=== PATIENT | male | born 1975 | race Caucasian/White ===

== ENCOUNTER 2023-11-10 15:56 | Emergency (ER) | payer SELFPAY ==
[2023-11-10 16:08] VITALS: BP 138/98
[2023-11-10 16:45] LABS: % Basophils 0.4 % (0-2); % Eosinophils 0.5 % (0-6); % Immature Granulocytes 0.5 % (0-0.5); % Neutrophils 78.6 % (42.2-75.2); ALT (SGPT) 34 U/L (0-50); AST (SGOT) 29 U/L (17-59); Absolute Eosinophils 0.1 10^3/uL (0-0.7); Absolute Immature Granulocytes 0.1 10^3/uL (0-0.05); Absolute Lymphocytes 1.3 10^3/uL (1.2-3.4); Absolute Monocytes 0.7 10^3/uL (0.1-0.6); Absolute Neutrophils 7.6 10^3/uL (1.4-6.5); Albumin 4.9 g/dl (3.5-5.0); Alkaline Phosphatase 80 U/L (38-126); Blood Urea Nitrogen 17 mg/dl (9-20); Calcium 9.9 mg/dl (8.4-10.2); Carbon Dioxide 29 mmol/L (22-30); Chloride 102 mmol/L (98-107); Glucose 82 mg/dl (70-99); Hematocrit 38.6 % (39.0-52.0); Hemoglobin 13.9 g/dL (13.0-18.0); Mean Corpuscular Hgb 28.4 pg (27.0-31.0); Mean Corpuscular Volume 78.8 fL (80.0-94.0); Mean Platelet Volume 9.9 fL (7.4-10.4); Nucleated Red Blood Cells % 0 % (-); Platelet Count 223 10^3/uL (130-400); Potassium 4.5 mmol/L (3.5-5.1); Red Cell Dist. Width 13.3 % (11.5-14.5); Sodium 142 mmol/L (135-145); Total Bilirubin 0.9 mg/dl (0.2-1.3); White Blood Cell Count 9.7 10^3/uL (4.8-10.8); eGFR > 60.00
[2023-11-10 16:56] LABS: Troponin I < 0.012 ng/ml
--- NOTE | 2023-11-10 19:02 | ED.GENMED ---
History of Present Illness
General
Chief Complaint: Chest Pain
Source: patient
Exam Limitations: none
Time Seen by Provider: 11/10/23 18:59
Nursing documentation reviewed up to this point in time: agreed with
History of Present Illness
History of Present Illness:
48-year-old male presents emergency ferment complaining of spitting up blood last night. He felt he was going to throw up, and when he did he spit up some blood. He was having intermittent chest pain/tightness. He has a history of GERD, no
history of CAD.
Past History
Past History
ED Past Medical History: GERD and Hypercholesterolemia; Negative CAD
ED Past Surgical History: None
Social History
Tobacco: Non-smoker
Alcohol: None
Drug: None
Review of Systems
Review of Systems
Allergies reviewed?: Yes
All Other Systems: Not applicable
Constitutional: Reports no symptoms
EENT: Reports no symptoms
Respiratory: Reports no symptoms
Cardiac: Reports chest pain
ABD/GI: Reports abdominal pain
: Reports no symptoms
Musculoskeletal: Reports no symptoms
Skin: Reports no symptoms
Neurological: Reports no symptoms
Endocrine: Reports no symptoms
Hematologic/Lymphatic: Reports no symptoms
Psychiatric: Reports no symptoms
Phy Exam
Physical Exam
Physical Exam:
Physical Exam
General: no apparent distress, not acutely ill
Neck: supple. no meningeal signs. normal posterior pharynx
Heart: s1/s2 regular rate and rhythm, no murmur. equal radial
pulses.
HEENT: Pupils equal round reactive to light, EOMI
Lungs: no acute respiratory distress. clear bilaterally
Abdomen: normal bowel sounds. not tender. no CVAT
Neuro: alert and oriented. no focal neurological deficits cranial nerves II through XII intact
Skin: no rash
Psychiatric: well kept. interactive and cooperative
Extremities: no edema. no calf tenderness. negative homans. good distal pulses
Scores
Heart Score for Chest Pain Patients
STEMI patient?: No
History: Slightly or Non-Suspicious
ECG: Normal
Age: >45 - <65 years
Risk Factors: 1 or 2 Risk Factors
Troponin: </= Normal Limit
Heart Score for Chest Pain Patients: 2
Heart Score Risk: 2.5% MACE over next 6 weeks
Course
Orders/Labs/Results
Orders:
Orders
11/10/23 16:12
Electrocardiogram (*1) Urgent
Reason for Study: Chest Pain
11/10/23 16:13
EKG- Treatment ONCE
11/10/23 16:18
CMP [Comprehensive Metabolic Panel] Urgent
Complete Blood Count/With Diff Urgent
Lipase Urgent
Comment: ADDON
Troponin I Urgent
11/10/23 19:17
Add On- LAB Urgent
Tests Added?: lipase
Abnormal Lab Results
11/10/23
16:18
Hct 38.6 L %
(39.0-52.0)
MCV 78.8 L fL
(80.0-94.0)
Abs Immat Gran (auto) 0.1 H 10^3/uL
(0-0.05)
Absolute Neuts (auto) 7.6 H 10^3/uL
(1.4-6.5)
Absolute Monos (auto) 0.7 H 10^3/uL
(0.1-0.6)
Neutrophils % 78.6 H %
(42.2-75.2)
Lymphocytes % 13.0 L %
(20.5-51.1)
11/10/23 16:18
11/10/23 16:18
Vital Signs
Initial and Last Documented VS:
Initial Vital Signs
Temp Pulse Resp BP Pulse Ox
98.4 F 88 18 138/98 98
11/10/23 16:08 11/10/23 16:08 11/10/23 16:08 11/10/23 16:08 11/10/23 16:08
Last Documented Vital Signs
Temp Pulse Resp BP Pulse Ox
97.9 F 88 18 134/90 99
11/10/23 21:20 11/10/23 21:20 11/10/23 21:20 11/10/23 21:20 11/10/23 21:20
MDM/Problems Addressed
Differential Diagnosis Includes:
Upper GI bleed, ACS, gastritis
MDM/Problems Addressed:
48-year-old male with 1 episode of hematemesis. Asymptomatic in ED. Discussed with Dr. Pravin Escoto, who will follow-up with patient in office. Do not suspect ACS. Normal EKG and troponin.
Chronic conditions affecting care: Other (GERD)
Acute Exacerbation and/or Progression of Chronic Illness: Other (GERD)
*Pulse Oximetry
Patient hypoxic: no
*EKG
Interpreted by ED Provider?: Yes
EKG Intrepretation Date: 11/10/23
EKG Intrepretation Time: 16:16
Interpretation: normal
Comparison EKG: no changes
Heart Rate: 86
Rate: normal
Rhythm: sinus
[place]: normal axis
Interval: normal interval
QRS Pattern: normal QRS
Ischemia: no ischemia
*Director Of Hemophilia Interpretation
Rate: normal
Interpretation: normal
Heart Rate: 85
Rhythm: sinus
*Critical Care Note
Total Time (30-74mins, 75-104mins- exclusive of procedures): Not Applicable
Patient Management
Social determinants of health affecting care: Living situation
Discussion with other providers: Founder Ceo & President (GI, Dr. Escoto)
Escalation/DeEscalation of care consider admission/obs:
admit not indicated
ED Attending Note
-
Portions of this chart may have been created with voice recognition software.� Occasional wrong word or��sound alike� substitutions may have occurred due to the inherent limitations of voice recognition software.
Discharge Plan
Departure
Patient Disposition: Home (Routine Discharge)
Date of Disposition: 11/10/23
Time of Disposition: 21:18
Patient with high blood pressure during this ER visit?: Yes
Condition: Good
Discharge Problem:
Hematemesis of unknown etiology
Instructions: Gastrointestinal Bleeding (DC), BLOOD PRESSURE
Prescriptions:
No Action
famotidine [Pepcid AC] 20 MG tablet
20 mg PO DAILY
atorvastatin 10 mg Tablet
10 mg PO HS
fluvoxamine 100 mg Tablet
100 mg PO HS
bupropion HCl [Wellbutrin XL] 300 mg Tablet Extended Release 24 Hr
300 mg PO DAILY
Referrals:
Emiliano Escoto MD [Active] - Call in 1-3 days for appt
Bryson Romero MD [Family Provider] -
Interventions
Interventions:
*Risk Screen - Suicide Last Done: 11/10/23 19:49
*Neglect/Abuse Screening Last Done: 11/10/23 19:49
ED- Fall Risk Assessment Last Done: 11/10/23 19:49
*Nursing Disposition Last Done: 11/10/23 21:20
ED- Cardiac Assessment Last Done: 11/10/23 19:46
Discharge Date and Time
Discharge Date/Time: 11/10/23 21:22
Print Language: TAMAZIGHT
[2023-11-10 19:48] VITALS: BP 135/82
[2023-11-10 20:24] LABS: Lipase 107 U/L (23-300)
[2023-11-10 21:20] VITALS: BP 134/90
== END 2023-11-10 21:22 | disposition home or self-care (01) ==
LOC: EMR 15:56
PROVIDERS: Emergency Medicine; EMERGENCY PHYSICIAN Emergency Medicine; FAMILY PHYSICIAN Internal Medicine
DX: K92.0 Hematemesis (principal); K21.9 Gastro-esophageal reflux disease without esophagitis
CPT/HCPCS: 99284; 80053; 83690; 84484; 85025; 93005

== ENCOUNTER → 2023-11-23 06:25 | Day surgery (SDC) | payer OTHER, SELFPAY | LOC: GI 06:25 | PROVIDERS: ATTENDING PHYSICIAN Internal Medicine Gastroenterology | DX: K31.7 Polyp of stomach and duodenum (principal); K31.89 Other diseases of stomach and duodenum; R13.10 Dysphagia, unspecified; R12 Heartburn; K92.0 Hematemesis | CPT/HCPCS: 43239; 88305; 88342 ==

== ENCOUNTER 2024-05-02 17:04 | Emergency (ER) | payer OTHER, SELFPAY ==
[2024-05-02 17:13] VITALS: BP 125/94
[2024-05-02 17:31] LABS: % Immature Granulocytes 0.5 % (0-0.5); % Lymphocytes 6.6 % (20.5-51.1); % Monocytes 0.5 % (1.7-9.3); % Neutrophils 92.4 % (42.2-75.2); Absolute Lymphocytes 0.3 10^3/uL (1.2-3.4); Absolute Neutrophils 3.6 10^3/uL (1.4-6.5); Hematocrit 41.4 % (39.0-52.0); Hemoglobin 14.6 g/dL (13.0-18.0); Mean Corp Hgb Conc. 35.3 g/dL (33.0-37.0); Mean Corpuscular Hgb 27.1 pg (27.0-31.0); Mean Corpuscular Volume 76.8 fL (80.0-94.0); Mean Platelet Volume 9.7 fL (7.4-10.4); Nucleated Red Blood Cells % 0 % (-); Platelet Count 250 10^3/uL (130-400); Red Blood Cell Count 5.39 10^6/uL (4.70-6.10); Red Cell Dist. Width 13.4 % (11.5-14.5); White Blood Cell Count 3.9 10^3/uL (4.8-10.8)
[2024-05-02 17:48] LABS: ALT (SGPT) 35 U/L (0-50); AST (SGOT) 29 U/L (17-59); Albumin 5.2 g/dl (3.5-5.0); Alkaline Phosphatase 107 U/L (38-126); Blood Urea Nitrogen 13 mg/dl (9-20); Calcium 9.5 mg/dl (8.4-10.2); Carbon Dioxide 19 mmol/L (22-30); Chloride 104 mmol/L (98-107); Glucose 217 mg/dl (70-99); Potassium 4.4 mmol/L (3.5-5.1); Sodium 137 mmol/L (135-145); Total Bilirubin 0.7 mg/dl (0.2-1.3); Total Protein 7.3 g/dl (6.3-8.2); eGFR > 60.00
[2024-05-02 17:59] LABS: Troponin I < 0.012 ng/ml
[2024-05-02 18:17] LABS: TSH Reflex To Free T4 0.46 uIU/ml (0.47-4.68)
[2024-05-02 18:47] LABS: Free T4 0.98 ng/dl (0.78-2.19)
--- NOTE | 2024-05-02 19:45 | ED.GENMED ---
History of Present Illness
General
Chief Complaint: Heart Rate Problem
Time Seen by Provider: 05/02/24 19:45
History of Present Illness
History of Present Illness:
TIME OF INITIAL ENCOUNTER: 7:45 PM
HPI: While sitting earlier today, the patient had abrupt onset palpitations. He has not had symptoms like this before. He did have some associated chest discomfort but this did not concern him as he frequently is had similar chest discomfort in
the past. He did recently have a procedure today and was given propofol as well as a steroid injection in the upper back/neck.
EXAM:
GENERAL: Well appearing in no distress
HEENT: Moist oral mucosa
CARDIOVASCULAR: No murmurs, slightly tachycardic heart rate, regular rhythm, No chest wall tenderness
PULMONARY: No respiratory distress, breath sounds are clear and equal
ABDOMEN: Soft with no peritoneal signs, no tenderness
NEUROLOGIC: Excellent strength all extremities, no coordination deficits
PSYCHIATRIC: Appropriate mental status, normal insight and judgement, appears just slightly anxious
EXTREMITIES: Nontender, no edema, moves all extremities equally
SKIN: No rash, no lesions
NUMBER AND COMPLEXITY OF PROBLEMS ADDRESSED AT THE ENCOUNTER
� Chronic conditions affecting care: GERD, anxiety/depression, hyperlipidemia
� Acute Exacerbation and/or Progression of Chronic Illness: The palpitations are an acute problem however the chest discomfort is chronic
� Differential Diagnosis includes: Anxiety, SVT, A-fib, other dysrhythmia, dehydration
AMOUNT AND/OR COMPLEXITY OF DATA TO BE REVIEWED AND ANALYZED
� I performed an independent evaluation of and my interpretation is:
EKG: Sinus 110, leftward axis deviation, nonspecific ST abnormality,
CT:
X-rays:
Laboratory Studies: White count 3.9, hemoglobin normal, bicarb 19, glucose 217, TS slightly low but free T4 normal, troponin less than 0.012,
Other:
� Review of other/old records: The patient was seen here last November related to dysphagia and had endoscopy at that time; coronary calcium score 0 as of 2021
� Clinical information was obtained by an independent historian: I spoke to father at bedside
� Prescriptions/Medications Considered but not given:
� Further testing considered but not performed:
RISK OF COMPLICATIONS AND/OR MORBIDITY OR MORTALITY OF PATIENT MANAGEMENT
� Social determinants of health affecting care: Lives at home
� Discussion with other providers:
� Escalation of care including admission/observation vs risk of discharge considered: We talked about the possibility of an anxiety component and he agrees that there could be anxiety contributing to his symptoms. He did have a
persisting tachycardia upon arrival with heart rates in the 110 range. He was given a dose of Ativan.
ANY OTHER UPDATES:
10:20 PM: I reassessed patient, heart rate elevated at around 130�will give beta-tory by IV. He still feels the palpitations but denies any other symptoms
Blood sugar is elevated and I recommend that he follows up with primary care doctor for reassessment. Minimal leukopenia but new from prior. On reassessment at 11 PM, heart rate down into the 90s now. Clearly in sinus rhythm.
Past History
Past History
ED Past Medical History: GERD and Hypercholesterolemia; Negative CAD
ED Past Surgical History: None
Social History
Tobacco: Non-smoker
Alcohol: None
Drug: None
Phy Exam
Physical Exam
Physical Exam:
See HPI
Course
Orders/Labs/Results
Orders:
Orders
05/02/24 17:07
Electrocardiogram (*1) Urgent
Reason for Study: Chest Pain
Cardiac Monitoring- Treatment ONCE
EKG- Treatment ONCE
IV Insert/Care/Rem.- Treatment PRN
O2 Therapy [RESP] Urgent
Titrate/Wean O2 to maintain O2 sat greater than (%): 90
Special Instructions: Maintain sats >/=90%
Pulse Ox/spot Check [RESP] Urgent
Quantity: 1
Special Instructions: ON ROOM AIR
05/02/24 17:20
Complete Blood Count/With Diff Urgent
Comprehensive Metabolic Panel Urgent
Free T4 Urgent
TSH Reflex To Free T4 Urgent
Troponin I Urgent
05/02/24 20:07
Lorazepam [Ativan] 1 mg IV NOW STA
05/02/24 22:30
Metoprolol [Lopressor] 5 mg IV NOW STA
Abnormal Lab Results
05/02/24
17:20
WBC 3.9 L 10^3/uL
(4.8-10.8)
MCV 76.8 L fL
(80.0-94.0)
Absolute Lymphs (auto) 0.3 L 10^3/uL
(1.2-3.4)
Absolute Monos (auto) 0.0 L 10^3/uL
(0.1-0.6)
Neutrophils % 92.4 H %
(42.2-75.2)
Lymphocytes % 6.6 L %
(20.5-51.1)
Monocytes % 0.5 L %
(1.7-9.3)
Carbon Dioxide 19 L mmol/L
(22-30)
Glucose 217 H mg/dl
(70-99)
Albumin 5.2 H g/dl
(3.5-5.0)
TSH (Reflex) 0.46 L uIU/ml
(0.47-4.68)
05/02/24 17:20
05/02/24 17:20
Vital Signs
Initial and Last Documented VS:
Initial Vital Signs
Temp Pulse Resp BP Pulse Ox
36.8 C 112 16 125/94 98
05/02/24 17:13 05/02/24 17:13 05/02/24 17:13 05/02/24 17:13 05/02/24 17:13
Last Documented Vital Signs
Temp Pulse Resp BP Pulse Ox
36.8 C 92 18 129/90 98
05/02/24 21:02 05/02/24 23:00 05/02/24 23:00 05/02/24 23:00 05/02/24 23:00
*Critical Care Note
Total Time (30-74mins, 75-104mins- exclusive of procedures): Not Applicable
ED Attending Note
-
Portions of this chart may have been created with voice recognition software.� Occasional wrong word or��sound alike� substitutions may have occurred due to the inherent limitations of voice recognition software.
Discharge Plan
Departure
Patient Disposition: Home (Routine Discharge)
Date of Disposition: 05/02/24
Time of Disposition: 23:04
Patient with high blood pressure during this ER visit?: Yes
Discharge Problem:
Palpitations
Instructions: Palpitations (DC)
Prescriptions:
New
metoprolol succinate 25 mg tablet extended release 24 hr
25 mg PO DAILY Qty: 30 0RF
No Action
atorvastatin 10 mg Tablet
10 mg PO HS
bupropion HCl [Wellbutrin SR] 200 mg Tablet Sustained-Release 12 Hr
200 mg PO BID
tadalafil [Cialis] 5 mg Tablet
5 mg PO DAILY
esomeprazole magnesium [Nexium] 40 mg Capsule,Delayed Release(Dr/Ec)
40 mg PO BID
Referrals:
Mikhail Cornell MD [Active] - Follow up in 1 week
Parul Tyler NP [Family Provider] -
Activity Restrictions/Additional Instructions:
The cause of your symptoms is unclear. Your main thyroid number is normal. Your heart rate has been elevated with rates as high as 130. I did send a prescription for Lopressor to your pharmacy. I also recommend that you follow-up with a
group insurance specialist.
Interventions
Interventions:
*Risk Screen - Suicide Last Done: 05/02/24 17:13
*General Assessment Last Done: 05/02/24 17:13
*Neglect/Abuse Screening Last Done: 05/02/24 17:13
*ED COVID-19 Vaccine History Last Done: 05/02/24 17:13
ED- Cardiac Assessment Last Done: 05/02/24 21:08
ED- Pulmonary Assessment Last Done: 05/02/24 21:08
Discharge Date and Time
Print Language: CROATIAN
[2024-05-02 20:00] VITALS: BP 132/85
[2024-05-02] MEDS: ATIVAN 1 MG IV (20:35)
[2024-05-02 20:53] VITALS: BMI 30.2
--- NOTE | 2024-05-02 20:57 | EDRN ---
Pt wa sitting on his chair and he says his heart started racing and he kept looking at his watch and saw it was climbing up to 155. Pt felt lightheaded and had his daughter call 911. EMS brought pt to ED. Pt says after ativan IV, 'my face is nice
a lower.' Pt still feels anxious, has hx anxiety/depression. Pt admits to more stress recently that is probably exacerbating his anxiety. Pt smokes marijuana for anxiety and says he did not do so today. Pt also has clonazepam but has not taken
it 'in awhile.' Pt got a steroid shot in his back today 'they put me under.' Pt says he got propofol and 'something to relax me before that kicked in.'
[2024-05-02 21:00] VITALS: BP 126/98
[2024-05-02 22:00] VITALS: BP 146/90
[2024-05-02] MEDS: LOPRESSOR 5 MG IV (22:34)
[2024-05-02 22:38] VITALS: BP 126/92
[2024-05-02 23:00] VITALS: BP 129/90
== END 2024-05-02 23:34 | disposition home or self-care (01) ==
LOC: EMR 17:04
PROVIDERS: Student in an Organized Health Care Education/Training Program; EMERGENCY PHYSICIAN Emergency Medicine; FAMILY PHYSICIAN Nurse Practitioner Adult Health
DX: R00.2 Palpitations (principal); R07.89 Other chest pain; E78.00 Pure hypercholesterolemia, unspecified; K21.9 Gastro-esophageal reflux disease without esophagitis; F41.9 Anxiety disorder, unspecified
CPT/HCPCS: 96374; 96375; 99284; 80053; 84439; 84443; 84484; 85025; 93005

== ENCOUNTER 2024-12-18 06:23 | Day surgery (SDC) | payer OTHER, SELFPAY | END 2024-12-18 13:15 | disposition home or self-care (01) | LOC: GI 06:23 | PROVIDERS: ATTENDING PHYSICIAN Internal Medicine Gastroenterology | DX: K62.5 Hemorrhage of anus and rectum (principal); D50.9 Iron deficiency anemia, unspecified; K64.9 Unspecified hemorrhoids; R13.10 Dysphagia, unspecified; K31.7 Polyp of stomach and duodenum; D12.4 Benign neoplasm of descending colon; K63.5 Polyp of colon; D13.1 Benign neoplasm of stomach; K31.89 Other diseases of stomach and duodenum | CPT/HCPCS: 45385; 45380; 43239; 88305; 88342 ==